=== PATIENT | female | born 1985 | race Caucasian/White ===

== ENCOUNTER 2022-09-09 18:10 | Emergency (ER) | payer OTHER, SELFPAY ==
--- NOTE | ~2022-09-09 | XR_ITS ---
XR finger 1st RT min 2V DATE: 09/09/2022 19:14 INDICATION: Thumb laceration 5 days ago. Can't straighten the digits. TECHNIQUE: 3 views COMPARISON: None FINDINGS: No fracture or dislocation, periosteal reaction or bone destruction, subcutaneous emphysema or radiopaque soft tissue foreign body. IMPRESSION: No bony abnormality Reviewed, dictated and finalized at location A. IMPRESSION: No bony abnormality
[2022-09-09 18:12] VITALS: BP 144/82; PULSE 120; RESP 18; TEMP 37.2; O2SAT 100
[2022-09-09 20:26] VITALS: BP 120/53; PULSE 82; TEMP 36.8; O2SAT 100
--- NOTE | 2022-09-09 22:37 | ED.UPPEXIN ---
HPI - Extremity Injury (Upper) General Chief Complaint: Extremity Injury, Upper Stated Complaint: cut self, cant straighten thumb Time Seen by Provider: 09/09/22 22:37 History of Present Illness HPI narrative: This is a right-handed 37 year old female with no significant past medical history who presents to the emergency department, unable to extend her right thumb. She states 4 days ago, she cut her right thumb with a grill scraper. She controlled the bleed and wrapped it. Today, after taking down her bandages she noticed she was unable to extend the thumb. She denies pain, weakness or injury elsewhere. She states her last tetanus shot was 2 years ago. Related Data Allergies Allergy/AdvReac Type Severity Reaction Status Date / Time venlafaxine Allergy Unknown Verified 04/10/14 16:15 No Known Allergies Allergy Unverified 10/14/17 13:02 Review of Systems Review of Systems: All systems reviewed & are unremarkable except as noted in HPI and below (HPI) Constitutional: Comments: Denies fevers or chills Eyes: Comments: denies blurred or loss of vision Cardiovascular: Comments: denies chest pain or palpitations Respiratory: Comments: denies shortness of breath or cough Gastrointestinal: Comments: Denies nausea, vomiting, diarrhea or abdominal pain Genitourinary: Comments: Denies dysuria or hematuria Musculoskeletal: Comments: Right thumb weakness on extension Neurologic: Comments: Denies other focal weakness or numbness PMFSH Family History Family History Father Hypertension Family history of coronary artery disease Other Diabetes mellitus Social History Social History Alcohol intake: never Exam Narrative: GENERAL: Well-developed, well-nourished, and in no acute distress. HEAD: Normocephalic, atraumatic. EYES: PERRLA and EOMI. CHEST: Clear to auscultation. No respiratory distress. No wheezes rales or rhonchi HEART: Regular rate and rhythm. No murmur heard. Normal peripheral pulses. EXTREMITIES: A healing laceration is noted over the dorsal aspect of the right thumb. There is a small amount of swelling without erythema or induration. The patient is unable to extend the thumb at the DIP. The thumb extends easily with passive ROM. Flexion of the thumb is normal. Normal range of motion of all other extremities. NEURO: No focal deficits. Alert and oriented x3. Lynette decreased sensation at the medial aspect of the right thumb. PSYCH: Normal mood and affect. Course Course Emergency Course: 22:39 - Xray negative for fracture. The patient's thumb was placed in a splint with extension of the DIP. The patient was given referral information for Hand surgeon Dr. Pepper and recommendation for close follow up. Discussed return and emergency precautions including signs/symptoms of wound infection and neurovascular compromise. The patient voiced understanding and is comfortable with the plan. All questions answered to her satisfaction. Vital Signs Vital signs: Vital Signs Temperature 99 F 09/09/22 18:12 Pulse Rate 120 H 09/09/22 18:12 Respiratory Rate 18 09/09/22 18:12 Blood Pressure 144/82 H 09/09/22 18:12 Pulse Oximetry 100 09/09/22 18:12 Oxygen Delivery Room Air 09/09/22 18:12 Temperature 98.2 F 09/09/22 20:26 Pulse Rate 82 09/09/22 20:26 Respiratory Rate 18 09/09/22 18:12 Blood Pressure 120/53 L 09/09/22 20:26 Pulse Oximetry 100 09/09/22 20:26 Oxygen Delivery Room Air 09/09/22 18:12 MDM - Extremity Injury (Upper) MDM Narrative Medical decision making narrative: Plan: Imaging, splinting. Differential Diagnosis Differential diagnosis: Likely finger sprain and other (finger fracture, extensor tendon injury, other) Discharge Plan Discharge Clinical Impression: Other specified injury of extensor muscle, fascia and tendon of right thumb at
--- NOTE | 2022-09-09 22:46 | PC.NURSE ---
Aluminum finger splint applied to right thumb and wrapped with kerlix.
== END 2022-09-09 22:51 | disposition home or self-care (01) ==
LOC: ANHED 22:49
PROVIDERS: Emergency Provider Preventive Medicine Aerospace Medicine
DX: S66.291A Other specified injury of extensor muscle, fascia and tendon of right thumb at wrist and hand level, initial encounter (principal); S61.011A Laceration without foreign body of right thumb without damage to nail, initial encounter; W27.8XXA Contact with other nonpowered hand tool, initial encounter
CPT/HCPCS: 29130; 73140; 99283

== ENCOUNTER 2025-03-08 08:07 | Emergency (ER) | payer OTHER, SELFPAY ==
[2025-03-08 08:07] VITALS: BP 138/82; PULSE 58; RESP 18; TEMP 36.5; O2SAT 98
--- NOTE | 2025-03-08 08:11 | ED.NAVMDI ---
HPI - Nausea/Vomiting/Diarrhea General Chief complaint: Nausea/Vomiting/Diarrhea Stated complaint: NAUSEA,VOMITING Source: patient Mode of arrival: ambulatory Limitations: no limitations History of Present Illness HPI Narrative: Patient is a 39-year-old female who is breast-feeding and here with nausea vomiting and diarrhea for the past 2 days. She ate [employer] and feels possibly this is a relationship. There has been some dark coffee-ground appearance in her vomitus. A coffee-ground color appears to have cleared at this time. She feels very weak. Diarrhea has stopped at this point. No particular abdominal pain except from retching. MD elicited complaint: nausea, vomiting and diarrhea Pertinent past history: other (None) Onset (ago): day(s) (2) Description of vomiting: food contents, watery and coffee grounds Description of diarrhea: watery Associated nausea: Yes Associated abdominal pain: No Location of pain: none Radiation: other (None) Pain consistency: other (None) Severity: moderate Pain scale (0-10): 0 Quality: other (None) Exacerbating factors: eating and vomiting Relieving factors: none Context: possible food poisoning and other (Delivery of baby 3 months ago and breast-feeding currently; no control otherwise) Associated symptoms: loss of appetite, malaise, nausea/vomiting, weakness and decreased urine output Treatment prior to arrival: none Related Data Allergies Allergy/AdvReac Type Severity Reaction Status Date / Time No Known Allergies Allergy Verified 03/08/25 08:13 Review of Systems Review of Systems: All systems reviewed & are unremarkable except as noted in HPI and below Constitutional: Constitutional: Reports no additional constitutional complaints Eyes: Eyes: Reports no additional eye complaints ENT: Reports system reviewed and no additional complaints, except as documented Cardiovascular: Cardiovascular: Reports no additional cardiovascular complaints Respiratory: Respiratory: Reports no additional respiratory complaints Gastrointestinal: Gastrointestinal: Reports no additional gastrointestinal complaints Genitourinary: Genitourinary: Reports no additional female genitourinary complaints Musculoskeletal: Musculoskeletal: Reports no additional musculoskeletal complaints Integumentary/Breasts: Skin/Breast: Reports system reviewed and no additional complaints, except as docu Neurologic: Reports system reviewed and no additional complaints, except as documented Psychiatric: Psychiatric: Reports no additional psychiatric complaints Endocrine: Endocrine: Reports no additional endocrine complaints Hematologic/Lymphatic: Hematologic/Lymphatic: Reports no additional hematologic/lymphatic complaints Allergic/Immunologic: Allergic/Immunologic: Reports no additional allergic/immunologic complaints PMFSH Family History Family History Father Hypertension Family history of coronary artery disease Other Diabetes mellitus Social History Social History Alcohol intake: never Exam Const: General: healthy appearing, no acute distress and alert Nutritional Appearance: well nourished Orientation/consciousness: patient oriented x3 Limitations: no limitations HENMT: Head: normal to inspection Ears: external ears normal Face/Nose/Sinus: Normal external nose present Eyes: Conjunctivae: conjunctivae normal Cornea: corneas normal Pupils: Equal, round and reactive pupils present Neck: Neck: normal visual inspection Chest: Chest palpation & inspection: normal inspection of the chest Resp: Effort & Inspection: normal respiratory effort and not labored Auscultation: clear to auscultation bilaterally and no crackles Cardio: Rate: regular rate Rhythm: regular rhythm Heart sounds: no murmurs GI: Inspection: non-distended GI Palp: Yes Soft to palpation, No Tenderness to palpation present (GI), No Guarding due to palpation present (GI), No Rigid due to palpation, No Hernia present, No Palpable mass present and No Rebound tenderness present Auscultation: Hypoactive bowel sounds present : General: Yes bladder normal to palpation Back/Spine/Pelvis: Back: no CVA tenderness Skin: General skin exam: normal color Rashes: no rashes Wounds: no wounds Neuro: General: patient oriented x3, moves all extremities and no meningeal signs Extrem: General: normal to inspection, no clubbing, cyanosis or edema and no pedal edema Psych: Mental Status: mental status grossly normal Affect: normal affect Attitude: cooperative Course Vital Signs Vital signs: Vital Signs Temperature 36.5 C 03/08/25 08:07 Pulse Rate 58 L 03/08/25 08:07 Respiratory Rate 18 03/08/25 08:07 Blood Pressure 138/82 03/08/25 08:07 Pulse Oximetry 98 03/08/25 08:07 Oxygen Delivery Room Air 03/08/25 08:07 Temperature 36.5 C 03/08/25 08:07 Pulse Rate 60 03/08/25 10:00 Respiratory Rate 20 03/08/25 10:00 Blood Pressure 106/58 L 03/08/25 10:00 Pulse Oximetry 95 03/08/25 10:00 Oxygen Delivery Room Air 03/08/25 10:00 MDM - Nausea/Vomiting/Diarrhea MDM Narrative Medical decision making narrative: Patient is a 39-year-old female with nausea vomiting and diarrhea and breast-feeding at the same time. We will do IV fluids and Protonix for questionable upper GI post bleeding and Zofran. Check basic labs. Urinalysis. U preg. After 2 bags of IV fluids I recheck the CBC and it is stable. Her symptoms are much resolved at this time. She is feeling much better. I will have her recheck a CBC at follow-up this week. Further she will get a [employer] for GI coverage. Azithromycin is safe in breast-feeding. Lab Data Attestation: I reviewed the patient's lab results. 03/08/25 10:08 03/08/25 08:32 Labs: Lab Results 03/08/25 03/08/25 03/08/25 Range/Units 08:32 08:33 09:28 WBC 16.2 H (4.8-10.8) K/mm3 RBC 4.61 (4.20-5.40) M/mm3 Hgb 13.4 (12.0-15.0) g/dL Hct 39.9 (35.0-49.0) % MCV 86.6 (78.0-102.0) fL MCH 29.1 (27.0-31.0) pg MCHC 33.6 (32-36) g/dL RDW 13.4 (11.6-14.4) % Plt Count 303 (150-420) K/mm3 MPV 10.4 (9.2-11.8) fl Immature Gran % (Auto) 0.6 H (0.0-0.0) % Neut % (Auto) 80.5 H (50.0-70.0) % Lymph % (Auto) 10.8 L (18.0-42.0) % Arthur % (Auto) 7.8 (2.0-11.0) % Eos % (Auto) 0.1 L (1.0-6.0) % Baso % (Auto) 0.2 (0.0-1.0) % Lymph # (Auto) 1.75 (1.10-4.50) K/mm3 Arthur # (Auto) 1.27 H (0.10-0.90) K/mm3 Eos # (Auto) 0.01 L (0.02-0.50) K/mm3 Baso # (Auto) 0.03 (0.00-0.10) K/mm3 Abs Immat Gran (auto) 0.09 H (0.00-0.00) K/mm3 Absolute Neuts (auto) 13.06 H (1.70-7.20) K/mm3 Absolute Nucleated RBC 0.00 (0.00-0.00) K/mm3 Nucleated RBC % 0.0 (0-0.0) % Sodium 139 (137-145) mmol/L Potassium 3.2 L (3.4-5.0) mmol/L Chloride 96 L (98-107) mmol/L Carbon Dioxide 31 H (22-30) mmol/L Anion Gap 12 (4-12) mmol/L BUN 13 (7-17) mg/dL Creatinine 0.70 (0.7-1.0) mg/dL Estim Creat Clear Calc 76 ml/min Estimated GFR > 60 (59 - ) Glucose 153 H (65-110) mg/dL Calculated Osmolality 291 (285-295) mOsm/kg Lactic Acid 1.5 (0.4-2.0) mmol/L Calcium 8.9 (8.4-10.2) mg/dL Total Bilirubin 0.6 (0.2-1.3) mg/dL AST 26 (14-36) U/L ALT 21 (6-35) U/L Alkaline Phosphatase 72 (38-126) U/L Total Protein 8.1 (6.3-8.2) g/dL Albumin 4.7 (3.5-5.1) g/dL Urine Color Yellow (Yellow) Urine Appearance Clear (Clear) Urine pH 8.0 (5.0-8.0) Ur Specific [place] 1.010 (1.010-1.020) Urine Protein 2+ H (Negative) Urine Glucose (UA) Negative (Negative) Urine Ketones Negative (Negative) Ur Blood (Man) Negative (Negative) Urine Nitrate Negative (Negative) Urine Bilirubin Negative (Negative) Urine Urobilinogen 1.0 (0.2-1.0) mg/dL Leukocyte Esterase Rfl Negative (Negative) SHARON/UL Urine RBC None seen (0-2) /hpf Urine WBC None seen (0-3) /hpf Ur Squamous Epith Cells Moderate H (Few) /hpf Urine Bacteria Trace (None) /hpf Urine Mucus Moderate H /lpf Urine Test Negative 03/08/25 Range/Units 10:08 WBC 15.9 H (4.8-10.8) K/mm3 RBC 3.93 L (4.20-5.40) M/mm3 Hgb 11.5 L (12.0-15.0) g/dL Hct 34.7 L (35.0-49.0) % MCV 88.3 (78.0-102.0) fL MCH 29.3 (27.0-31.0) pg MCHC 33.1 (32-36) g/dL RDW 13.4 (11.6-14.4) % Plt Count 245 (150-420) K/mm3 MPV 10.1 (9.2-11.8) fl Immature Gran % (Auto) 0.9 H (0.0-0.0) % Neut % (Auto) 81.8 H (50.0-70.0) % Lymph % (Auto) 8.3 L (18.0-42.0) % Arthur % (Auto) 8.9 (2.0-11.0) % Eos % (Auto) 0.0 L (1.0-6.0) % Baso % (Auto) 0.1 (0.0-1.0) % Lymph # (Auto) 1.31 (1.10-4.50) K/mm3 Arthur # (Auto) 1.41 H (0.10-0.90) K/mm3 Eos # (Auto) 0.00 L (0.02-0.50) K/mm3 Baso # (Auto) 0.02 (0.00-0.10) K/mm3 Abs Immat Gran (auto) 0.14 H (0.00-0.00) K/mm3 Absolute Neuts (auto) 12.98 H (1.70-7.20) K/mm3 Absolute Nucleated RBC 0.00 (0.00-0.00) K/mm3 Nucleated RBC % 0.0 (0-0.0) % Sodium (137-145) mmol/L Potassium (3.4-5.0) mmol/L Chloride (98-107) mmol/L Carbon Dioxide (22-30) mmol/L Anion Gap (4-12) mmol/L BUN (7-17) mg/dL Creatinine (0.7-1.0) mg/dL Estim Creat Clear Calc ml/min Estimated GFR (59 - ) Glucose (65-110) mg/dL Calculated Osmolality (285-295) mOsm/kg Lactic Acid (0.4-2.0) mmol/L Calcium (8.4-10.2) mg/dL Total Bilirubin (0.2-1.3) mg/dL AST (14-36) U/L ALT (6-35) U/L Alkaline Phosphatase (38-126) U/L Total Protein (6.3-8.2) g/dL Albumin (3.5-5.1) g/dL Urine Color (Yellow) Urine Appearance (Clear) Urine pH (5.0-8.0) Ur Specific [place] (1.010-1.020) Urine Protein (Negative) Urine Glucose (UA) (Negative) Urine Ketones (Negative) Ur Blood (Man) (Negative) Urine Nitrate (Negative) Urine Bilirubin (Negative) Urine Urobilinogen (0.2-1.0) mg/dL Leukocyte Esterase Rfl (Negative) SHARON/UL Urine RBC (0-2) /hpf Urine WBC (0-3) /hpf Ur Squamous Epith Cells (Few) /hpf Urine Bacteria (None) /hpf Urine Mucus /lpf Urine Test Discharge Plan Discharge Clinical Impression: Acute dehydration, Gastroenteritis, Abnormal WBC count, Hypokalemia Patient Disposition: Home Condition: Stable Instructions: Dehydration (ED), Gastroenteritis (ED) Additional Instructions: Please follow-up with primary doctor in the next week. Please have your CBC redrawn at follow-up. Your white blood count was elevated to 16,000 and stable at repeat value. Normal ranges 10,000 or less. Please come back to the emergency room with any worse symptoms. Patient Language: Luxembourgish Prescriptions: New azithromycin 250 mg tablet See Rx Instructions .ROUTE .COMPLEX Qty: 6 0RF Rx Instructions: For 250 mg dose pack: take 500 mg today (day 1), then 250 mg for 4 days (days 2-5) ondansetron 4 mg tablet,disintegrating 4 mg PO Q8H PRN (Reason: nausea and vomiting) Qty: 20 0RF potassium chloride [K-Tab] 20 mEq tablet extended release 40 meq PO ONCE Qty: 2 0RF Follow-up/Referrals: Elodia,Anuradha Johnson MD [Primary Care Provider, [employer]] Time of Disposition: 10:41
--- OUTSIDE RECORDS SUMMARY | 2025-03-08 08:12 | XMS_ITS | Clinical Summary ---
Author Organization [facility] Address [address] [place] [address] Phone Care Team Providers Care Compensation/Benefits Specialist Name Role Phone Provider, None Primary Care Provider Unavailabl e Allergies No known active allergies Medications naphazoline-phe niramine (NAPHCON-A) 0.025-0.3 % Solution Place 2 Drops in affected eye(s) 4 times daily as needed. 10 mL 0 01/10/2016 Active Social History Tobacco Use Types Packs/Day Years Used Date Smoking Tobacco: Every Day Cigarettes Alcohol Use Standard Drinks/Week Comments Yes 0 (1 standard drink = 0.6 oz pur e alcohol) Comments No Sex and Gender Information Value Date Recorded Sex Assigned at Not on file Legal Sex Female 11:57 PM CDT Gender Identity Not on file Sexual Orientation Not on file Last Filed Vital Signs Vital Sign Reading Time Taken Comments Blood Pressure 141/72 01/09/2016 11:14 PM CDT Pulse - - Temperature 36.2 C (97.2 F) 01/09/2016 11:14 PM CDT Respiratory Rate 16 01/09/2016 11:14 PM CDT Oxygen Saturation 100% 01/09/2016 11:14 PM CDT Inhaled Oxygen Concentration - - Weight 57.6 kg (127 lb) 01/09/2016 11:14 PM CDT Height 159.4 cm (5' 2.75) 01/09/2016 11:14 PM C DT Body Mass Index 22.68 01/09/2016 11:14 PM CDT Plan of Treatment Not on file Insurance MEDICAID [place] Care Teams Compensation/Benefits Specialist Relationship Specialty Start Date End Date Provider, None [place] PCP - General 01/10/16
--- OUTSIDE RECORDS SUMMARY | 2025-03-08 08:12 | XMS_ITS | Encounter Summary ---
Author Organization [facility] Healthcare Address [address] [place] [address] Care Team Providers Care Electronics Manufacturer Name Role Phone No, Physician Primary Care Provider [phone] Anuradha Clifton MD Unavailable [phone] Reason for Visit * Reason Onset Date Comments appt. update 02/28/2025 Encounter Details Date Type Department Care Team (Late st Contact Info) Description 02/28/2025 Telephone [facility] [address] [place] [address] Anuradha Clifton MD [address] [place] [address] [address] [place] [address] appt. update Social History Tobacco Use Types Packs/Day Years Used Date Smoking Tobacco: Former Cigarettes 1 20.8 2 004 - 04/2024 Passive Smoke Exposure: Past Smokeless Tobacco: Never Comments:Quit smoking before . Vapes a puff of her boyfriends maybe 2 times a week. Occassionally gummies twice a week [facility] Utilities Answer Date Recorded In the past 12 months has [employer], gas, oil, or water [employer] threatened to shut off services in your home? No 08/21/2024 Humiliation, Afraid, Rape, and Kick questionnair e Answer Date Recorded Within the last year, have y ou been afraid of your partner or ex-partner? No 08/21/2024 Within the last year, have y ou been humiliated or emotionally abused in other ways by your partner or ex-partner? No Within the last year, have y ou been kicked, hit, slapped, or otherwise physically hurt by your partner or ex-partner? No 08/21/2024 Within the last year, have y ou been raped or forced to have any kind of sexual activity by your partner or ex-partner? No 08/21/2024 Social Connection and Isolation Panel Answer Date Recorded In a typical week, how many times do you talk on the phone with family, friends, or neighbors? More than three times a week 08/21/2024 How often do you get togethe r with friends or relatives? Three times a week 08/21/2024 How often do you attend chur or caodaism services? More than 4 times per year 08/21/2024 Do you belong to any clubs o r organizations such as spiritism groups, unions, fraternal or athletic groups, or school groups? No 08/21/2024 How often do you attend meet ings of the clubs or organizations you belong to? Never 08/21/2024 Are you , , di vorced, , never , or living with a partner? Living with partner 08/21/2024 AUDIT-C Answer Date Recorded Q1: How often do you have a drink containing alc ohol? Monthly or less 08/21/2024 Q2: How many drinks containi ng alcohol do you have on a typical day when you are drinking? 1 or 2 08/21/2024 Q3: How often do you have si x or more drinks on one occasion? Never 08/21/2024 Overall Financial Resource Strain (CARDIA) Answe r Date Recorded How hard is it for you to pa y for the very basics like food, housing, medical care, and heating? Not hard at all 08/21/2024 PHQ-2 Answer Date Recorded PHQ-2 Total Score 0 08/21/2024 [facility] of Occupat ional Health - Occupational Stress Questionnaire Answer Date Recorded Do you feel stress - tense, restless, nervous, or anxious, or unable to sleep at night because your mind is troubled all the time - these days? Only a little 08/21/2024 Exercise Vital Sign Answer Date Recorde d On average, how many days pe r week do you engage in moderate to strenuous exercise (like a brisk walk)? 5 days 08/21/2024 On average, how many minutes do you engage in exercise at this level? 40 min 08/21/2024 Hunger Vital Sign Answer Date Recorded Within the past 12 months, y ou worried that your food would run out before you got the money to buy more. Never true 08/22/19 25 Within the past 12 months, t he food you bought just didn't last and you didn't have money to get more. Never true 08/21/2024 PRAPARE - Transportation Answer Date Re corded In the past 12 months, has l ack of transportation kept you from medical appointments or from getting medications? No 08/04 In the past 12 months, has l ack of transportation kept you from meetings, work, or from getting things needed for daily living? No 08/21/2024 [place] Depression Scale Answer Date Recorded [place] Depression Scale Total 0 11/12/2024 The thought of harming myself has occurred to me . Never 11/12/2024 Housing Stability Vital Sign Answer Jude e Recorded In the last 12 months, was t here a time when you were not able to pay the mortgage or rent on time? No 08/21/2024 In the past 12 months, how m any times have you moved where you were living? 0 08/21/2024 At any time in the past 12 m [facility], were you homeless or living in a fdc (including now)? No 08/21/2024 Comments Unknown Sex and Gender Information Value Date Recorded Sex Assigned at Not on file Legal Sex Female 1:47 PM CDT Gender Identity Not on file Sexual Orientation Not on file documented as of this encounter Miscellaneous Notes * Telephone Encounter - Macie Meier, DESTINEE - 02/28/2025 9:29 AM CDT I called and spoke with patient Patient was scheduled for usg and f/up usg appt. To also discuss RATLH with Dr. Clifton. Patient no showed that appt. I asked if I could get patient rescheduled and she stated she spoke with her fiance and with her baby being 6 months old she is not able to be down that long from a surgery. She is thinking she wants to go with the [facility] that was discussed. Is tated I would send a message to Dr. Clifton to see if we are ok to just schedule this instead and will see if usg is still needed if we do so. KERI Singh, RN documented in this encounter Plan of Treatment Not on file documented as of this encounter Visit Diagnoses Not on filedocumented in this encounter Care Teams Electronics Manufacturer Relationship Specialty Start Date End Date No, Physician PCP - General 12/23/23 Anuradha Clifton MD [address] [place] [address] [address] Consulting Physician Obstetrics and Gynecology 08/21/24 documented as of this encounter
--- OUTSIDE RECORDS SUMMARY | 2025-03-08 08:13 | XMS_ITS | Clinical Summary ---
Author Organization [facility] Medical Office Building B Address [address] [place] [address] Care Team Providers Care Marine Steam Fitter Name Role Phone No, Physician Primary Care Provider [phone] Anuradha Clifton MD Unavailable [phone] Allergies Active Allergy Reactions Criticality Noted Date Comments Latex Rash Medium 01/24/2024 Medications nicotine (NICODERM CQ) 7 mgIndications:T obacco use Place 1 patch on the skin daily 14 patch 11 4 Active Additional Information Patient not taking.Reported on 12/17/2024 cholecalciferol (VITAMIN D-3) 5,000 unit capsule Take one capsule daily with food. 30 capsule 11 4 Active PNV #[id number] acid-dha 35 mg iron-5 mg iron-1 mg capsule Take by mouth daily Active ibuprofen (ADVIL,MOTRIN) 600 mg tabletIndicatio ns:Cramps Take 1 tablet (600 mg total) by mouth every 6 (six) hours as needed for pain 20 tablet 5 Active Additional Information Patient not taking.Reported on 12/17/2024 Active Problems Problem Noted Date Diagnosed Date High grade squamous intraepi thelial lesion (HGSIL), grade 3 JOEY, on biopsy of cervix 01/27/2024 Overview (12/09/2024): 01/27/24- high-risk HPV 16 and ASCUS Pap smear will plan to repeat 11/12/24- LGSIL 12/03/24- colpo and ecc done and bx---CIN3 negative ECC. Assessment & Plan (12/17/2024 10:08 AM CDT): Results reviewed Options discussed She is leaning towards hyst as she is done with childbearing To usg Will examine her next time and see if she is a candidate for vaginal surgery Otherwise we discussed TLH with robotic assist Assessment & Plan (12/03/2024 9:44 AM CDT): Colposcopy and biopsy done without difficulty Cyst of right ovary 01/24/2024 Overview (03/20/2024): 01/24/24- septated corpus luteum that is 3 cm. Recommend repeat ultrasound 03/20/24- resolved Assessment & Plan (03/20/2024 4:24 PM CDT): resolved Assessment & Plan (01/24/2024 4:41 PM CDT): We will plan to repeat her ultrasound Sterilization 01/24/2024 Overview (01/24/2024): The plan is that he will have vasectomy If she has to have c/s, will do BTL Assessment & Plan (01/24/2024 4:41 PM CDT): The plan is that he will have vasectomy If she has to have c/s, will do BTL Tobacco use 01/24/2024 Assessment & Plan (12/17/2024 10:08 AM CDT): Occ vape The patient was encouraged to stop smoking. Techniques for smoking cessation were discussed to the patient's level of interest. Assessment & Plan (01/24/2024 10:53 AM CDT): The patient was encouraged to stop smoking. Techniques for smoking cessation were discussed to the patient's level of interest. She is wanting the patch. Marijuana smoker 01/24/2024 Overview (01/25/2024): The patient was instructed to stop smoking marijuana as it is bad for the baby's brain development. 01/25/2024-UDS is positive Assessment & Plan (01/24/2024 4:42 PM CDT): The patient was instructed to stop smoking marijuana as it is bad for the baby's brain development. Resolved Problems Problem Noted Date Diagnosed Date Resolved Date 41 weeks gestation of 09/04/2024 12/03/2024 40 weeks gestation of 08/19/2024 12/03/2024 Low-lying placenta 03/20/2024 Overview (05/15/2024): Resolved Supervision of normal 01/24/2024 12/03/2024 Overview (08/07/2024): 01/31/2024-negative cell free DNA testing and carrier screening. 03/20/24- incomplete anatomy scan - right outflow tract 08/07/24 GBS collected SVE C/T/H. Declined TDAP will go for 28 week labs today. Multigravida of advanced mat ernal age in first trimester 01/24/2024 12/03/2024 Assessment & Plan (01/24/2024 4:41 PM CDT): The risk with AMA discussed. These risk include increased to the mother such as an increased risk of HTN and GDM. The baby is at increased risk of genetic issues. Genetic screening for chromosomal abnormalities discussed with the false positives and negatives. She wants to do cell free DNA testing. The testing process was reviewed including that insurance may not cover. If not, there may be other testing options so she should call me when she finds out. . . She may require extra usg in the third trimester. Questions answered. Encounters Date Type Department Care Team Description 02/28/2025 Telephone [facility] [address] [place] [address] [address] [place] [address] Anuradha Clifton MD appt. update 01/11/2025 Telephone [facility] [address] [place] [address] [address] [place] [address] Anuradha Clifton MD 12/17/2024 9:45 AM CDT Office Visit [facility] at [address] [address] Anuradha Clifton MD High grade squamous intraepithelial lesion (HGSIL), grade 3 JOEY, on biopsy of cervix (Primary Dx); Tobacco use 12/14/2024 Results Follow-Up [address] [place] [address] Macie Meier RN Surgical pathology from Last 3 Months Surgical History Surgery Date Site/Laterality Comments TONSILLECTOMY Family History Medical History Relation Name Comments Heart disease Maternal Grandmother Cancer Neg Hx no colon, breas t or acid blower cancer cmt 01/24/24 Relation Name Status Comments Maternal Grandmother Social History Tobacco Use Types Packs/Day Years Used Date Smoking Tobacco: Former Cigarettes 1 20.8 2 004 - 04/2024 Passive Smoke Exposure: Past Smokeless Tobacco: Never Tobacco Cessation:Counseling Given: No Comments:Quit smoking before . Vapes a puff of her boyfriends maybe 2 times a week. Occassionally gummies twice a week [facility] [employer] Answer Date Recorded In the past 12 months has [facility] [employer], gas, oil, or water [employer] threatened to shut off services in your [...] 08/21/2024 How often do you attend chur ch or worship services? More than 4 times per year 08/21/2024 Do you belong to any clubs o r organizations such as nondenominational groups, unions, fraternal or athletic groups, or [...] Date Recorded PHQ-2 Total Score 0 08/21/2024 [facility] of Occupat ional Health - Occupational Stress [...] things needed for daily living? No 08/21/2024 Carr Depression Scale Answer Date Recorded Carr Depression Scale Total 0 11/12/2024 The thought [...] any time in the past 12 m [facility], were you homeless or living in a penitentiary (including now)? No 08/21/2024 Comments Unknown Sex and Gender Information Value Date Recorded Sex Assigned at Not on file Legal Sex Female 1:47 PM CDT Gender Identity Not on file Sexual Orientation Not on file Obstetrics History Para Term AB IAB SAB Ectopic Multiple Livin g Live Births 5 5 5 0 5 5 Date Outcome GA Total Labor Labor/2nd/3rd Weight Sex Type Anes PTL Lisseth A1 A5 Name Clin 2002 Term 40w 0d M Vagina l Livin g 2004 Term 40w 0d F Vagina l Livin g 2016 Term 40w 0d F Vagina l Livin g 2017 Term 40w 0d F Vagina l Livin g 2024 Term 41w 3d 0h 33m 0h 23m/0h 10m 3.149 kg (6 lb 15.1 oz) M Vagina l None N Livin g 8 9 Liz Ochoa, Complications:None Delivery Location:[facility] ([facility]) Comments She has always been induced This baby and the last two have the same FOB Last her bp went up at the end. Never told preeclampsia. No gdm No ptl Last Filed Vital Signs Vital Sign Reading Time Taken Comments Blood Pressure 110/74 12/17/2024 9:49 AM CDT Pulse 51 08/21/2024 4:10 PM CDT Temperature 36.9 C (98.4 F) 08/21/2024 4:10 PM CDT Respiratory Rate 16 08/21/2024 4:10 PM CDT Oxygen Saturation 97% 08/20/2024 4:00 PM CDT Inhaled Oxygen Concentration - - Weight 57.6 kg (127 lb) 12/17/2024 9:49 AM CDT Height 157.5 cm (5' 2) 12/17/2024 9:49 AM CDT Body Mass Index 23.23 12/17/2024 9:49 AM CDT Plan of Treatment Health Maintenance Due Date Last Done Comments Breast Cancer Screening-Mammogram 1984 DTaP/Tdap/Td Vaccine (6 - Tdap) 09/03/1995 01/06/1990, 10/16/1986, 08/15/1985, Additional history exists Varicella Vaccines (1 of 2 - 13+ 2-dose series) 1997 Hepatitis B Screening 2002 Regular Well Visit/Exam 18-64 2002 HPV Vaccines (1 - 3-dose SCDM series) 09/03/2011 Influenza Vaccine (#1) 2025 Cervical Cancer Screening 11/12/20252024, 01/24/2024, 01/24/2024 Depression Screening 11/12/2025 11/12/2024, 08/21/2024, 08/19/2024, Additional history exists Hepatitis C Screening Completed 08/07/2024, 024 Pneumococcal vaccine <65 Aged Out No longer eligible based on patient's age to complete this topic Procedures Procedure Name Priority Date/Time Associated Diagnosis Comments PAP AND HPV, REFLEX TO HPV GENOTYPES Routine 11/12/2024 1:56 PM CDT Abnormal cervical Papanicolaou smear, unspecified abnormal pap finding HEPATITIS C ANTIBODY Routine 08/07/2024 10:57 AM MOLDED GOODS SPOT PICKER Encounter for supervision of other normal in second trimester from Last 3 Months or Most Recently Relevant to Health Maintenance Results * (ABNORMAL) Pap and HPV, reflex to HPV Genotypes (11/12/2024 1:56 PM CDT) CLINICAL INFORMATION: [facility] Comment:A LMP [facility] Comment:A Previous Pap [facility] Comment:NONE GIVEN Prev. Bx [facility] Comment:NONE GIVEN SOURCE: [facility] Comment:Cervix, Endocervix Pap, specimen adequacy [facility] Comment: Satisfactory for evaluation. Endocervical/transformation zone component present. Pap, general categorization (A) [facility] Comment:Cytology Results: Ep ithelial Cell Abnormality HPV interp (A) [facility] Comment:Low Grade Squamous I ntraepithelial Lesion (LSIL) COMMENTS [facility] Comment: This Pap test has been evaluated with computer assisted technology. Suggest clinical correlation and follow-up as clinically appropriate [employer] Que [facility] Comment: ABC, CT(ASCP) CT screening location: [place] [address] [place] [address] Pathologist [facility] Comment: Wilfred Meyers M.D., Board Certified in Anatomic Pathology and Cytopathology. (electronic signature) Pathologist Release Date/Time: 11/16/2024 11:19AM Comment [facility] Comment: EXPLANATORY NOTE: The Pap is a screening test for cervical cancer. It is not a diagnostic test and is subject to false negative and false positive results. It is most reliable when a satisfactory sample, regularly obtained, is submitted with relevant clinical findings and history, and when the Pap result is evaluated along with historic and current clinical information. Human papillomavirus DNA, High Risk E6/E7 Detected (A) NOT DETECTED [facility] Comment: Detected One or more High Risk HPV types (16,18,31,33, 35,39,45,51,52,56,58,59,66,68) was detected. Methodology: Real Time PCR Thin prep-Endocervica l 11/12/2024 1:56 PM CDT 11/13/2024 8:58 PM CDT Amairani Valentin NP LAB CYTOLOGY ORDERABLES Fin al Result [facility] [address] [place] [address] [facility] [address] [place] [address] * Hepatitis C antibody Blood (08/07/2024 10:57 AM MOLDED GOODS SPOT PICKER) Hep C Ab Nonreactive Nonreactive Comment: Interpretive Data Nonreactive: Antibodies to HCV not detected. Does NOT exclude the possibility of recent exposure to HCV. Equivocal: Equivocal for HCV antibodies. Supplemental molecular testing will be automatically performed to determine infection status in accordance with current CDC screening recommendations. Reactive: Positive for HCV antibodies. This may represent current or past HCV infection. Supplemental molecular testing will be automatically performed to determine current infection status in accordance with current CDC screening recommendations. Interpretive data was last revised on 2019. Testing performed by: [facility], [address] [place] [address]., [id number] Blood 08/07/2024 10:5 7 AM MOLDED GOODS SPOT PICKER 08/07/2024 6:17 PM MOLDED GOODS SPOT PICKER us Amairani Valentin NP LAB MICROBIOLOGY - GENERAL ORDERABLES Final Result ISHAAN YIN (PARMA) 1 [facility] Department [place] [address] from Last 3 Months or Most Recently Relevant to Health Maintenance Insurance [facility] Advance Directives For more information, please contact: [phone] * Full Code (Latest Code Status on File) Date Activated Date Inactivated Comments 08/19/2024 7:44 PM 08/21/2024 9:23 PM * Full Code Date Activated Date Inactivated Comments 08/19/2024 4:40 PM 08/19/2024 7:44 PM Full CPR in case of cardiopulmonary arrest Care Teams Marine Steam Fitter Relationship Specialty Start Date End Date No, Physician PCP - General 12/23/23 Anuradha Clifton MD [address] [place] [address] [address] Consulting Physician Obstetrics and Gynecology 08/21/24
[2025-03-08 08:30] VITALS: BP 126/74; PULSE 54; RESP 20; O2SAT 96
[2025-03-08 08:36] LABS: Hematocrit 39.9 % (35.0-49.0); Hemoglobin 13.4 g/dL (12.0-15.0); Immature Granulocyte Percent A 0.6 % (0.0-0.0); Lymphocytes Absolute Auto 1.75 K/mm3 (1.10-4.50); Mean Corpuscular HGB Conc 33.6 g/dL (32-36); Mean Corpuscular Hemoglobin 29.1 pg (27.0-31.0); Mean Corpuscular Volume 86.6 fL (78.0-102.0); Nucleated Red Blood Cells Absolute Auto 0.00 K/mm3 (0.00-0.00); Nucleated Red Blood Cells Perc 0.0 % (0-0.0); Platelet Count Result 303 K/mm3 (150-420); Red Blood Count 4.61 M/mm3 (4.20-5.40); White Blood Count 16.2 K/mm3 (4.8-10.8)
[2025-03-08] MEDS: SODIUM CHLORIDE 0.9% IV 1,000 ML 999 ML IV CONT ×2 (08:42→09:34)
[2025-03-08] MEDS: PANTOPRAZOLE SODIUM IV 40 MG VIAL IV PUSH (08:42)
[2025-03-08] MEDS: ONDANSETRON INJ 4 MG/2 ML VIAL IV PUSH (08:42)
--- OUTSIDE RECORDS SUMMARY | 2025-03-08 08:44 | XMS_ITS | Encounter Summary ---
Author Organization [facility] Healthcare Address [address] [place] [address] Care Team Providers Care Oyster Preparer Name Role Phone No, Physician Primary Care Provider [phone] Anuradha Clifton MD Unavailable [phone] Reason for Visit * Reason Onset Date Comments appt. update 02/28/2025 Encounter Details Date Type Department Care Team (Late st Contact Info) Description 02/28/2025 Telephone [facility] [address] [place] [address] Anuradha Clifton MD [address] [place] [address] [address] [place] [address] appt. update Social History Tobacco Use Types Packs/Day Years Used Date Smoking Tobacco: Former Cigarettes 1 20.8 2 004 - 04/2024 Passive Smoke Exposure: Past Smokeless Tobacco: Never Comments:Quit smoking before . Vapes a puff of her boyfriends maybe 2 times a week. Occassionally gummies twice a week [facility] Utilities Answer Date Recorded In the past 12 months has [employer], gas, oil, or water [employer] threatened to shut off services in your [...] How often do you attend chur or nondenominational services? More than 4 times per year 08/21/2024 Do you belong to any clubs o r organizations such as uatsdin groups, unions, fraternal or athletic groups, or [...] Date Recorded PHQ-2 Total Score 0 08/21/2024 [facility] [place] of Occupat ional Health - Occupational Stress [...] things needed for daily living? No 08/21/2024 [place] Depression Scale Answer Date Recorded [place] Depression Scale Total 0 11/12/2024 The thought [...] any time in the past 12 m [facility], were you homeless or living in a [...] thinking she wants to go with the [facility] that was discussed. Is tated I would [...] on filedocumented in this encounter Care Teams Oyster Preparer Relationship Specialty Start Date End Date No, Physician PCP - General 12/23/23 Anuradha Clifton MD [address] [place] [address] [address] Consulting Physician Obstetrics and Gynecology 08/21/24 documented as of this encounter
--- OUTSIDE RECORDS SUMMARY | 2025-03-08 08:44 | XMS_ITS | Clinical Summary ---
Author Organization [facility] Medical Office Building B Address [address] [place] [address] Care Team Providers Care Software Licensing Analyst Name Role Phone No, Physician Primary Care Provider [phone] Anuradha Clifton MD Unavailable [phone] Allergies Active Allergy Reactions Criticality Noted Date Comments Latex Rash Medium 01/24/2024 Medications nicotine (NICODERM CQ) 7 mgIndications:T obacco use Place 1 patch on the skin daily 14 patch 11 4 Active Additional Information Patient not taking.Reported on 12/17/2024 cholecalciferol (VITAMIN D-3) 5,000 unit capsule Take one capsule daily with food. 30 capsule 11 4 Active PNV #[id number] acid-dha 35 mg iron-5 mg iron-1 mg [...] Type Department Care Team Description 02/28/2025 Telephone [facility] [address] [place] [address] [address] [place] [address] Anuradha Clifton MD appt. update 01/11/2025 Telephone [facility] [address] [place] [address] [address] [place] [address] Anuradha Clifton MD 12/17/2024 9:45 AM CDT Office Visit [facility] Women[facility] Care at [address] [address] Anuradha Cliftno MD High grade squamous intraepithelial lesion (HGSIL), grade 3 JOEY, on biopsy of cervix (Primary Dx); Tobacco use 12/14/2024 Results Follow-Up [address] [place] [address] Macie Meier RN Surgical pathology from Last 3 Months Surgical History Surgery Date Site/Laterality Comments TONSILLECTOMY Family History Medical History Relation Name Comments Heart disease Maternal Grandmother Cancer Neg Hx no colon, breas t or television repairman cancer cmt 01/24/24 Relation Name Status Comments Maternal Grandmother Social History Tobacco Use Types Packs/Day Years Used Date Smoking Tobacco: Former Cigarettes 1 20.8 2 004 - 04/2024 Passive Smoke Exposure: Past Smokeless Tobacco: Never Tobacco Cessation:Counseling Given: No Comments:Quit smoking before . Vapes a puff of her boyfriends maybe 2 times a week. Occassionally gummies twice a week [facility] [employer] Answer Date Recorded In the past 12 months has [facility] [employer] gas, oil, or water [employer] threatened to shut off services in your [...] often do you attend chur ch or bahai services? More than 4 times per year 08/21/2024 Do you belong to any clubs o r organizations such as samaritan groups, unions, fraternal or athletic groups, or [...] Date Recorded PHQ-2 Total Score 0 08/21/2024 [facility] of Occupat ional Health - Occupational Stress [...] things needed for daily living? No 08/21/2024 Wirtz Depression Scale Answer Date Recorded [place]z Depression Scale Total 0 11/12/2024 The thought [...] any time in the past 12 m [facility], were you homeless or living in a care home (including now)? No 08/21/2024 Comments Unknown Sex [...] HEPATITIS C ANTIBODY Routine 08/07/2024 10:57 AM SHELL GRADER Encounter for supervision of other normal in second trimester from Last 3 Months or Most Recently Relevant to Health Maintenance Results * (ABNORMAL) Pap and HPV, reflex to HPV Genotypes (11/12/2024 1:56 PM CDT) CLINICAL INFORMATION: [facility] Comment:A LMP [facility] Comment:A Previous Pap [facility] Comment:NONE GIVEN Prev. Bx [facility] Comment:NONE GIVEN SOURCE: [facility] Comment:Cervix, Endocervix Pap, specimen adequacy [facility] Comment: Satisfactory for evaluation. Endocervical/transformation zone component present. Pap, general categorization (A) [facility] Comment:Cytology Results: Ep ithelial Cell Abnormality HPV interp (A) [facility] Comment:Low Grade Squamous I ntraepithelial Lesion (LSIL) COMMENTS [facility] Comment: This Pap test has been evaluated with computer assisted technology. Suggest clinical correlation and follow-up as clinically appropriate Mental Health Nurse Practitioner Que [facility] Comment: ABC, CT(ASCP) CT screening location: [place] [address] [place] [address] Pathologist [facility] Comment: Wilfred Meyers M.D., Board Certified in Anatomic Pathology and Cytopathology. (electronic signature) Pathologist Release Date/Time: 11/16/2024 11:19AM Comment [facility] Comment: EXPLANATORY NOTE: The Pap is [...] High Risk E6/E7 Detected (A) NOT DETECTED [facility] Comment: Detected One or more High Risk HPV types (16,18,31,33, 35,39,45,51,52,56,58,59,66,68) was detected. Methodology: Real Time PCR Thin prep-Endocervica l 11/12/2024 1:56 PM CDT 11/13/2024 8:58 PM CDT Amairani Valentin NP LAB CYTOLOGY ORDERABLES Fin al Result [facility] [address] [place] [address] [facility] [address] [place] [address] * Hepatitis C antibody Blood (08/07/2024 10:57 AM SHELL GRADER) Hep C Ab Nonreactive Nonreactive Comment: Interpretive [...] last revised on 2019. Testing performed by: [facility], [address] [place] [address]., [id number] Blood 08/07/2024 10:5 7 AM SHELL GRADER 08/07/2024 6:17 PM SHELL GRADER us Amairani Valentin NP LAB MICROBIOLOGY - GENERAL ORDERABLES Final Result ISHAAN YIN (VOLGA) 1 [facility] Department [place] [address] from Last 3 Months or Most Recently Relevant to Health Maintenance Insurance [facility] Advance Directives For more information, please contact: [phone] * Full Code (Latest Code Status on File) Date Activated Date Inactivated Comments 08/19/2024 7:44 PM 08/21/2024 9:23 PM * Full Code Date Activated Date Inactivated Comments 08/19/2024 4:40 PM 08/19/2024 7:44 PM Full CPR in case of cardiopulmonary arrest Care Teams Software Licensing Analyst Relationship Specialty Start Date End Date No, Physician PCP - General 12/23/23 Anuradha Clifton MD [address] [place] [address] [address] Consulting Physician Obstetrics and Gynecology 08/21/24
--- OUTSIDE RECORDS SUMMARY | 2025-03-08 08:44 | XMS_ITS | Clinical Summary ---
Author Organization [facility] Address [address] [place] [address] Phone Care Team Providers Care Customer Success Manager Name Role Phone Provider, None Primary Care [...] on file Insurance [place] Care Teams Customer Success Manager Relationship Specialty Start Date End Date Provider, None [place] PCP - General 01/10/16
[2025-03-08 08:48] LABS: Alanine Aminotransferase 21 U/L (6-35); Albumin Level 4.7 g/dL (3.5-5.1); Alkaline Phosphatase 72 U/L (38-126); Anion Gap 12 mmol/L (4-12); Aspartate Amino Transferase 26 U/L (14-36); Bilirubin,Total 0.6 mg/dL (0.2-1.3); Blood Urea Nitrogen 13 mg/dL (7-17); Calcium 8.9 mg/dL (8.4-10.2); Carbon Dioxide 31 mmol/L (22-30); Chloride 96 mmol/L (98-107); Estimated CRCL calculation 76 ml/min; Estimated Glomerular Filt Rate > 60; Glucose 153 mg/dL (65-110); Osmolality Calculated 291 mOsm/kg (285-295); Potassium 3.2 mmol/L (3.4-5.0); Sodium 139 mmol/L (137-145); Total Protein 8.1 g/dL (6.3-8.2)
[2025-03-08 09:20] VITALS: BP 114/60; PULSE 57; RESP 20; O2SAT 98
[2025-03-08 09:36] LABS: Add Urine Microscopic? YES; Appearance Urine Clear (Clear); Glucose Urine UA Negative (Negative); Leukocyte Esterase Ur Negative LEU/UL (Negative); Nitrate Urine Negative (Negative); Specific Grav Ur 1.010 (1.010-1.020)
[2025-03-08 09:39] LABS: Pregnancy On Board Control Positive
[2025-03-08 10:00] VITALS: BP 106/58; PULSE 60; RESP 20; O2SAT 95
[2025-03-08 10:12] LABS: Hematocrit 34.7 % (35.0-49.0); Hemoglobin 11.5 g/dL (12.0-15.0); Immature Granulocyte Percent A 0.9 % (0.0-0.0); Lymphocytes Absolute Auto 1.31 K/mm3 (1.10-4.50); Mean Corpuscular HGB Conc 33.1 g/dL (32-36); Mean Corpuscular Hemoglobin 29.3 pg (27.0-31.0); Mean Corpuscular Volume 88.3 fL (78.0-102.0); Nucleated Red Blood Cells Absolute Auto 0.00 K/mm3 (0.00-0.00); Nucleated Red Blood Cells Perc 0.0 % (0-0.0); Platelet Count Result 245 K/mm3 (150-420); Red Blood Count 3.93 M/mm3 (4.20-5.40); White Blood Count 15.9 K/mm3 (4.8-10.8)
[2025-03-08 10:47] VITALS: BP 110/64; PULSE 63; RESP 20; TEMP 36.8; O2SAT 98
== END 2025-03-08 10:47 | disposition home or self-care (01) ==
PROVIDERS: Emergency Provider Emergency Medicine; PCP Obstetrics & Gynecology
DX: K52.9 Noninfective gastroenteritis and colitis, unspecified (principal); D72.829 Elevated white blood cell count, unspecified; E87.6 Hypokalemia; E86.0 Dehydration
CPT/HCPCS: 36415; 80053; 81001; 81025; 83605; 85025; 96361; 96374; 96375; 99284; J2405; J2470; J7030